=== PATIENT | male | born 1965 | race Caucasian/White ===

== ENCOUNTER 2017-04-23 11:01 | Emergency (ER) | payer SELFPAY ==
[~2017-04-23] VITALS: Ht 180.3 cm; Wt 74.0 kg
[2017-04-23 11:03] VITALS: BP 202/88; PULSE 75; RESP 16; TEMP 97.8; O2SAT 98
[2017-04-23] MEDS ORDERED: SODIUM CHLORIDE 0.9% FLUSH 10 ML FLUSH IVF PRN (11:30)
--- NOTE | 2017-04-23 11:53 | PD ---
HPI Chief Complaint: Lump, Cyst, Hernia Time Seen by Provider: 11:13 Travel History International Travel<30 days: No Contact w/Intl Traveler<30days: No Traveled to known affect area: No History of Present Illness HPI This is a 51-year-old male who presents for right neck cyst. He states that it has been present for several years but over the last 4 days has become enlarged and mildly painful. No associated fever, chills, nausea, vomiting, diarrhea. It has not enlarged in the past. Symptoms are moderate in severity. Onset gradual. He tried warm compresses without relief. He has been otherwise well recently without cough, congestion, vomiting, diarrhea. Patient does smoke cigarettes regularly. [facility] Past Medical History Medical History: Denies Significant Hx Diminished Hearing: No Tetanus Vaccination: > 5 Years Influenza Vaccination: No Past Surgical History Surgical History: No Previous Surgery Social History Alcohol Use: Yes (social) Tobacco Use: Yes Substance Use: No Allergies-Medications (Allergen,Severity, Reaction): Coded Allergies: No Known Allergies (Unverified Adverse Reaction, Unknown, 04/23/17) Reported Meds & Prescriptions Reported Meds & Active Scripts Active No Active Prescriptions or Reported Medications Review of Systems Except as stated in HPI: all other systems reviewed are Neg Physical Exam Narrative GENERAL: Alert, well nourished, well appearing patient resting on the bed in no acute distress. Vital Signs reviewed SKIN: Focused skin assessment warm/dry. HEAD: Atraumatic. Normocephalic. EYES: Pupils equal and round. No scleral icterus. No injection or drainage. ENT: No nasal bleeding or discharge. Mucous membranes pink and moist. NECK: Trachea midline. No JVD. Spontaneous, painless full range of motion with no meningismus. On the right side of the neck, there is a nearly golf ball size soft cystic mass. Mildly tender. No drainage. No difficulty breathing, speaking, swallowing CARDIOVASCULAR: Regular rate and rhythm. No murmur appreciated. Extremities warm and well perfused with bounding peripheral pulses RESPIRATORY: No accessory muscle use. Clear to auscultation. Breath sounds equal bilaterally. Breathing easily and speaking in full sentences GASTROINTESTINAL: Abdomen soft, non-tender, nondistended. Normal bowel sounds. No rigid, rebound, guarding MUSCULOSKELETAL: No obvious deformities. No clubbing. No cyanosis. No edema. Compartments are soft NEUROLOGICAL: Awake and alert. No obvious cranial nerve deficits. Motor grossly within normal limits. Normal speech. Sensation intact. Normal gait Data Data Last Documented VS Vital Signs Date Time Temp Pulse Resp B/P (MAP) Pulse Ox O2 Delivery O2 Flow Rate FiO2 04/23/17 13:00 68 20 174/88 (116) 96 Room Air 04/23/17 11:03 97.8 Orders Orders Electrocardiogram (04/23/17 11:23) Complete Blood Count With Diff (04/23/17 11:23) Comprehensive Metabolic Panel (04/23/17 11:23) Prothrombin Time / Inr (Pt) (04/23/17 11:23) Act Partial Throm Time (Ptt) (04/23/17 11:23) Chest, Single Ap (04/23/17 11:23) Iv Access Insert/Monitor (04/23/17 11:23) Sodium Chloride 0.9% Flush (Ns Flush) (04/23/17 11:30) Ct Soft Tiss Neck W Iv Cont (04/23/17 ) Iohexol 350 Inj (Omnipaque 350 Inj) (04/23/17 12:45) Mandatory Outpatient Referral (04/23/17 13:46) Labs Laboratory Tests Test 04/23/17 12:00 White Blood Count 9.6 TH/MM3 Red Blood Count 5.02 MIL/MM3 Hemoglobin 15.0 GM/DL Hematocrit 45.8 % Mean Corpuscular Volume 91.4 FL Mean Corpuscular Hemoglobin 29.9 PG Mean Corpuscular Hemoglobin Concent 32.8 % Red Cell Distribution Width 13.3 % Platelet Count 221 TH/MM3 Mean Platelet Volume 8.1 FL Neutrophils (%) (Auto) 66.2 % Lymphocytes (%) (Auto) 24.0 % Monocytes (%) (Auto) 7.0 % Eosinophils (%) (Auto) 1.7 % Basophils (%) (Auto) 1.1 % Neutrophils # (Auto) 6.3 TH/MM3 Lymphocytes # (Auto) 2.3 TH/MM3 Monocytes # (Auto) 0.7 TH/MM3 Eosinophils # (Auto) 0.2 TH/MM3 Basophils # (Auto) 0.1 TH/MM3 CBC Comment DIFF FINAL Differential Comment Prothrombin Time 9.8 SEC Prothromb Time International Ratio 1.0 RATIO Activated Partial Thromboplast Time 28.7 SEC Blood Urea Nitrogen 12 MG/DL Creatinine 0.84 MG/DL Random Glucose 95 MG/DL Total Protein 8.0 GM/DL Albumin 3.7 GM/DL Calcium Level 9.0 MG/DL Alkaline Phosphatase 126 U/L Aspartate Amino Transf (AST/SGOT) 11 U/L Alanine Aminotransferase (ALT/SGPT) 16 U/L Total Bilirubin 0.6 MG/DL Sodium Level 139 MEQ/L Potassium Level 4.3 MEQ/L Chloride Level 105 MEQ/L Carbon Dioxide Level 29.9 MEQ/L Anion Gap 4 MEQ/L Estimat Glomerular Filtration Rate 96 ML/MIN MDM Medical Decision Making Medical Screen Exam Complete: Yes Emergency Medical Condition: Yes Medical Record Reviewed: Yes Interpretation(s) Last 24 hours Impressions Chest X-Ray 04/23/17 1123 Signed Impressions: Service Date/Time: Sunday, April 23, 2017 11:42 - CONCLUSION: No acute disease. Gerardo Haider MD FACR Neck CT 04/23/17 0000 Signed Impressions: Service Date/Time: Sunday, April 23, 2017 12:48 - CONCLUSION: Necrotic soft tissue nodule in anterior right neck measuring 3.1 x 2.3 cm across. It superficial to the neck fascia with some surrounding soft tissue inflammation and skin thickening. More superficial than a typical lymph node. No other significant lymphadenopathy is identified other than small reactive nodes bilaterally. Jake Carlisle MD Laboratory Tests Test 04/23/17 12:00 White Blood Count 9.6 TH/MM3 Red Blood Count 5.02 MIL/MM3 Hemoglobin 15.0 GM/DL Hematocrit 45.8 % Mean Corpuscular Volume 91.4 FL Mean Corpuscular Hemoglobin 29.9 PG Mean Corpuscular Hemoglobin Concent 32.8 % Red Cell Distribution Width 13.3 % Platelet Count 221 TH/MM3 Mean Platelet Volume 8.1 FL Neutrophils (%) (Auto) 66.2 % Lymphocytes (%) (Auto) 24.0 % Monocytes (%) (Auto) 7.0 % Eosinophils (%) (Auto) 1.7 % Basophils (%) (Auto) 1.1 % Neutrophils # (Auto) 6.3 TH/MM3 Lymphocytes # (Auto) 2.3 TH/MM3 Monocytes # (Auto) 0.7 TH/MM3 Eosinophils # (Auto) 0.2 TH/MM3 Basophils # (Auto) 0.1 TH/MM3 CBC Comment DIFF FINAL Differential Comment Prothrombin Time 9.8 SEC Prothromb Time International Ratio 1.0 RATIO Activated Partial Thromboplast Time 28.7 SEC Blood Urea Nitrogen 12 MG/DL Creatinine 0.84 MG/DL Random Glucose 95 MG/DL Total Protein 8.0 GM/DL Albumin 3.7 GM/DL Calcium Level 9.0 MG/DL Alkaline Phosphatase 126 U/L Aspartate Amino Transf (AST/SGOT) 11 U/L Alanine Aminotransferase (ALT/SGPT) 16 U/L Total Bilirubin 0.6 MG/DL Sodium Level 139 MEQ/L Potassium Level 4.3 MEQ/L Chloride Level 105 MEQ/L Carbon Dioxide Level 29.9 MEQ/L Anion Gap 4 MEQ/L Estimat Glomerular Filtration Rate 96 ML/MIN Differential Diagnosis Branchial cleft cyst, abscess, sebaceous cyst, head and neck cancer Narrative Course IV access was established. Labs, imaging were performed. I spoke with Dr. Fuentes, the on-call gear cutting machine set up operator regarding the patient's history, symptoms, lab and imaging findings. He states that this will need to be biopsied as an outpatient. The patient will follow-up in his office. There is overlying erythema therefore I discussed starting the patient on a course of antibiotics to cover soft tissue infection. Dr. Fuentes agrees with this. I counseled the patient regarding results of workup and plan for discharge with supportive care, antibiotics, warm compresses and close follow-up with Dr. Fuentes as soon as possible. If he is unable to see Dr. Fuentes in 2 days, he will return to the emergency department. We discussed the possibility that this could be a infected sebaceous cyst versus head and neck cancer. I counseled him regarding smoking cessation. He understands strict return indications. He understands he will require further testing and treatment as an outpatient. He is comfortable with this plan and eager to be discharged. Diagnosis Primary Impression: Cyst of neck Referrals: Kelvin Fuentes MD 2 days Patient Instructions: Cyst (ED), General Instructions Additional Instructions: Take antibiotics as directed. Use warm compresses as directed. Follow-up with Dr. Fuentes with ear nose and throat in 2 days for recheck. Call first thing Tuesday morning. If you are not able to get in on Tuesday, please return to the emergency department for reevaluation. Return sooner if you have fever, worsening symptoms, difficulty breathing speaking or swallowing. It is very important that you quit smoking. Med/Other Pt SpecificInfo: Prescription(s) given Scripts Cephalexin (Keflex) 500 Mg Cap 500 MG PO Q12H for Infection, #7 CAP 0 Refills Prov: Jaquelin Dave MD 04/23/17 Sulfamethoxazole-Trimethoprim (Bactrim DS) 800-160 Mg Tab 1 TAB PO BID for Infection, #14 TAB 0 Refills Prov: Jaquelin Dave MD 04/23/17 Disposition: 01 DISCHARGE HOME Condition: Stable Jaquelin Dave MD Apr 23, 2017 11:53
[2017-04-23 12:13] LABS: AUTOMATED NEUTROPHIL # 6.3 TH/MM3 (1.8-7.7); BASOPHIL # 0.1 TH/MM3 (0-0.2); BASOPHIL % 1.1 % (0.0-2.0); EOSINOPHIL # 0.2 TH/MM3 (0-0.4); EOSINOPHIL % 1.7 % (0.0-4.0); HEMATOCRIT 45.8 % (39.0-51.0); LYMPHOCYTE # 2.3 TH/MM3 (1.0-4.8); MEAN CELL VOLUME 91.4 FL (80.0-100.0); MEAN CORPUSCULAR HEMOGLOBIN 29.9 PG (27.0-34.0); MEAN CORPUSCULAR HGB CONC 32.8 % (32.0-36.0); MEAN PLATELET VOLUME 8.1 FL (7.0-11.0); MONOCYTE # 0.7 TH/MM3 (0-0.9); NEUT % 66.2 % (16.0-70.0); PLATELET COUNT 221 TH/MM3 (150-450); RED BLOOD COUNT 5.02 MIL/MM3 (4.50-5.90); RED CELL DISTRIBUTION WIDTH 13.3 % (11.6-17.2); WHITE BLOOD COUNT 9.6 TH/MM3 (4.0-11.0)
--- NOTE | 2017-04-23 12:18 | RADRPT ---
EXAM DATE/TIME: 04/23/2017 11:42 [facility] COMPARISON: No previous studies available for comparison. INDICATIONS : Abcess right side neck, pain right neck and upper right chest area MEDICAL HISTORY : None. SURGICAL HISTORY : None. ENCOUNTER: Initial ACUITY: 2 days PAIN SCORE: 4/10 LOCATION: Right upper chest FINDINGS: A single view of the chest demonstrates the lungs to be symmetrically aerated without evidence of mas s, infiltrate or effusion. The cardiomediastinal contours are unremarkable. Osseous structures are intact. CONCLUSION: No acute disease. Gerardo Haider MD FACR on April 23, 2017 at 12:17 Board Certified Radiologist. This report was verified electronically.
[2017-04-23 12:23] LABS: CHLORIDE 105 MEQ/L (98-107); SODIUM (NA) 139 MEQ/L (136-145)
[2017-04-23 12:26] LABS: ALBUMIN 3.7 GM/DL (3.4-5.0)
[2017-04-23 12:27] LABS: BICARBONATE 29.9 MEQ/L (21.0-32.0); BLOOD UREA NITROGEN 12 MG/DL (7-18); GLUCOSE,RANDOM 95 MG/DL (74-106)
[2017-04-23 12:30] LABS: ALT (GPT) 16 U/L (12-78); AST (GOT) 11 U/L (15-37); CREATININE 0.84 MG/DL (0.60-1.30); GLOMERULAR FILTRATION RATE 96 ML/MIN (>89)
[2017-04-23 12:31] LABS: TOTAL BILIRUBIN ADULT 0.6 MG/DL (0.2-1.0)
[2017-04-23 12:33] LABS: ALKALINE PHOSPHATASE 126 U/L (45-117)
[2017-04-23] MEDS ORDERED: IOHEXOL 350 MG/ML 10 ML VIAL (for RAD DIAG) IVCONTRAST ONE (12:45)
[2017-04-23 13:00] VITALS: BP 174/88; PULSE 68; RESP 20; O2SAT 96
--- NOTE | 2017-04-23 13:08 | RADRPT ---
EXAM DATE/TIME: 04/23/2017 12:48 [facility] COMPARISON: No previous studies available for comparison. INDICATIONS : Right neck mass, abscess. IV CONTRAST: 75 cc Omnipaque 350 (iohexol) IV RADIATION DOSE: 11.68 CTDIvol (mGy) MEDICAL HISTORY : None SURGICAL HISTORY : None ENCOUNTER: Initial ACUITY: 2 days PAIN SCALE: 4/10 LOCATION: Right neck TECHNIQUE: Volumetric scanning of the neck was performed. Using automated exposure control and adjustment of th e mA and/or kV according to patient size, radiation dose was kept as low as reasonably achievable to obtain optimal diagnostic quality images. DICOM format image data is available electronically for r eview and comparison. FINDINGS: In the anterior right neck at the level of the hyoid bone there is a necrotic 3.1 x 2.3 cm mass. It is somewhat superficial than a typical lymph node. Differential includes epidermoid inclusion cyst ve rsus sebaceous cyst. There is some stranding skin thickening. Could be a subcutaneous abscess. It is superficial to the neck fascia. NASOPHARYNX: The nasopharyngeal airway has a normal configuration. No mucosal thickening or mass is seen. OROPHARYNX: The intrinsic muscles of the tongue are symmetric. The tonsillar pillars are intact. The prevertebr al soft tissues are not thickened. LARYNX: The supraglottic, glottic, and infraglottic structures are intact. PARAPHARYNGEAL: The parapharyngeal space is intact. SALIVARY GLANDS: The parotid and submandibular glands are intact. LYMPH NODES: No enlarged or necrotic-appearing nodes. THYROID: Homogeneous enhancement without evidence of nodule. BONES: Unremarkable. A minimal fluid or mucoperiosteal thickening in the maxillary sinuses CONCLUSION: Necrotic soft tissue nodule in anterior right neck measuring 3.1 x 2.3 cm across. It superficial to t he neck fascia with some surrounding soft tissue inflammation and skin thickening. More superficial t barney a typical lymph node. No other significant lymphadenopathy is identified other than small reactiv e nodes bilaterally. Jake Carlisle MD on April 23, 2017 at 13:04 Board Certified Radiologist. This report was verified electronically.
[2017-04-23 13:26] LABS: PROTHROMBIN TIME - PATIENT 9.8 SEC (9.8-11.6)
[2017-04-23] MEDS ORDERED: CEPH-460 PO (14:03)
[2017-04-23] MEDS ORDERED: BACT800T5 PO (14:03)
--- NOTE | 2017-04-24 13:21 | EKG ---
Date Performed: 04/23/2017 Time Performed: 11:28:53 PTAGE: 51 years EKG: Sinus rhythm NORMAL ECG NO PREVIOUS TRACING DOCTOR: Jake Shepherd Interpretating Date/Time 04/24/2017 13:18:35
== END 2017-04-23 14:52 | disposition home or self-care (01) ==
LOC: PHED 11:01
DX: L72.9 Follicular cyst of the skin and subcutaneous tissue, unspecified (principal); Z72.0 Tobacco use
CPT/HCPCS: 70491; 71045; 80053; 85025; 85610; 85730; 93005; 99285; Q9967

== ENCOUNTER 2017-04-25 11:06 | Emergency (ER) | payer SELFPAY ==
[~2017-04-25 11:06] MED LIST: BACT800T5 PO; CEPH-460 PO
[2017-04-25 11:10] VITALS: BP 175/84; PULSE 83; RESP 16; TEMP 97.7; O2SAT 98
--- NOTE | 2017-04-25 11:49 | PD ---
HPI Chief Complaint: Wound/Suture/Staple Re-Check Time Seen by Provider: 11:17 Travel History International Travel<30 days: No Contact w/Intl Traveler<30days: No Traveled to known affect area: No History of Present Illness HPI 50-year-old male that presents to the ED for evaluation of wound recheck. Patient was told to come here for wound recheck today. Patient had a cyst/ abscess to his right neck and had a CAT scan and workup that show possible concern for necrotic lesions. Patient was told to follow with ENT surgeon for eval but he has not been able to because of the weekend. He had a mandatory referral. His been compliant with his medications but is concerned because the mass itself seems to be getting bigger and more painful. She's had this lesion before but never as they get this. Per patient his been ongoing for some time but only for the past 10 days is been getting bigger and red. Denies any other medical issues at this time. Pain per patient is 8 out of 10 on the neck. No fevers chills or sweats. Other medical issues. PFSH Past Medical History Diminished Hearing: No Influenza Vaccination: No Social History Alcohol Use: Yes (social) Tobacco Use: Yes Substance Use: No Allergies-Medications (Allergen,Severity, Reaction): Coded Allergies: No Known Allergies (Unverified Adverse Reaction, Unknown, 04/25/17) Reported Meds & Prescriptions Reported Meds & Active Scripts Active Keflex (Cephalexin) 500 Mg Cap 500 Mg PO Q12H Bactrim DS (Sulfamethoxazole-Trimethoprim) 800-160 Mg Tab 1 Tab PO BID Review of Systems Except as stated in HPI: all other systems reviewed are Neg Physical Exam Narrative GENERAL: SKIN: Warm and dry. Patient has a purulent area about for some using diameter on the right neck. Pus express with minimal pressure on the neck. No obvious lymphadenopathy noted. No other lesions noted. Erythematous and warm to the touch. HEAD: Atraumatic. Normocephalic. EYES: Pupils equal and round. No scleral icterus. No injection or drainage. ENT: No nasal bleeding or discharge. Mucous membranes pink and moist. NECK: Trachea midline. No JVD. CARDIOVASCULAR: Regular rate and rhythm. RESPIRATORY: No accessory muscle use. Clear to auscultation. Breath sounds equal bilaterally. GASTROINTESTINAL: Abdomen soft, non-tender, nondistended. Hepatic and splenic margins not palpable. MUSCULOSKELETAL: Extremities without clubbing, cyanosis, or edema. No obvious deformities. NEUROLOGICAL: Awake and alert. No obvious cranial nerve deficits. Motor grossly within normal limits. Five out of 5 muscle strength in the arms and legs. Normal speech. PSYCHIATRIC: Appropriate mood and affect; insight and judgment normal. Data Data Last Documented VS Vital Signs Date Time Temp Pulse Resp B/P (MAP) Pulse Ox O2 Delivery O2 Flow Rate FiO2 04/25/17 11:10 97.7 83 16 175/84 (114) 98 Orders Orders Ed Discharge Order (04/25/17 11:47) Wound Culture And Gram Stain (04/25/17 11:47) Wound Care (04/25/17 11:47) MDM Medical Decision Making Medical Screen Exam Complete: Yes Emergency Medical Condition: Yes Medical Record Reviewed: Yes Differential Diagnosis Cyst versus abscess versus normal exam Narrative Course 50-year-old male that presents to the ED for evaluation of infection to his right neck. Patient was properly examined and was found to have signs and symptoms consistent with abscess. I recommend incision and drainage. Patient agrees. Please refer to my note. About 5-7 cc of pus were expressed with relief for the patient. Culture was taken. Patient was told to follow-up with the ear nose and throat for further eval. Eyes or warm compresses as needed. Follow with PCP. Continue antibiotics. See ED if worsening symptoms. Procedures Procedure Narrative After the risks and benefits were discussed the following procedure was performed: INCISION AND DRAINAGE OF ABSCESS: The area was prepped and was sterilely draped. A subcutaneous wheal of 1 % Xylocaine with a total number 5 mL was used to anesthetize the area. The area was properly anesthetized. A number 11 scalpel was used to make a 1 -cm incision across the area of the abscess. Cultures were obtained. The abscess was drained an irrigated with normal saline. Quarter inch iodoform packing was placed in the wound. Sterile dressing applied. Patient advised to have packing removed in two days. Diagnosis Primary Impression: Epidermal cyst of neck Patient Instructions: General Instructions Additional Instructions: Get packing removal in 48 hours. Follow-up with PCP. See ED worsening symptoms. Continue taking medications. Warm compresses. Motrin or Tylenol for pain Med/Other Pt SpecificInfo: No Change to Meds Disposition: 01 DISCHARGE HOME Condition: Stable Shaquille Jordan PA Apr 25, 2017 11:49
== END 2017-04-25 12:21 | disposition home or self-care (01) ==
LOC: PHEFT 11:06
DX: L72.8 Other follicular cysts of the skin and subcutaneous tissue (principal); B38.9 Coccidioidomycosis, unspecified; Z72.0 Tobacco use
CPT/HCPCS: 10061; 86403; 87070; 87185; 87205